=== PATIENT | male | born 1970 | race Caucasian/White ===

== ENCOUNTER 2020-01-09 22:52 | Inpatient (IN) | payer BC ==
[~2020-01-09] VITALS: Ht 177.8 cm; Wt 113.4 kg
[2020-01-09 23:50] LABS: CARBON DIOXIDE 35.7 mmol/L (21-32); CREATININE SERUM 1.4 mg/dL (0.7-1.3); POTASSIUM SERUM 4.5 mmol/L (3.5-5.1)
[2020-01-09 23:52] LABS: BASOPHIL % 0.6 % (0-2); PLATELET COUNT 195 x10^3mcL (130-400); RED CELL DISTRIBUTION WIDTH 12.8 % (11.5-14.5)
[2020-01-09 23:54] LABS: ALBUMIN 3.9 g/dL (3.4-5.0); BILIRUBIN TOTAL 0.4 mg/dL (0.20-1.00); TOTAL PROTEIN, SERUM 7.6 g/dL (6.4-8.2)
[2020-01-10] VITALS (7 sets, daily range): BP systolic 101–133; BP diastolic 58–89; Ht 177.8 cm; Wt 113.4 kg
[2020-01-10] MEDS ORDERED: METFORMIN HCL1000 MG PO (01:00)
[2020-01-10] MEDS ORDERED: AMARYL2 MG PO (01:00)
[2020-01-10 01:04] LABS: CHOLESTEROL/HDL RATIO 5.3; MAGNESIUM 2.1 mg/dL (1.8-2.4); PHOSPHOROUS 3.8 mg/dL (2.5-4.9)
[2020-01-10 01:10] LABS: T3 TOTAL 1.49 ng/mL
[2020-01-10 01:17] LABS: FREE T4 1.07 ng/dL (0.76-1.46); FREE THYROXINE INDEX 2.4 ug/dL (1.4-4.5); T4(THYROXINE) 7.4 ug/dL (4.7-13.3)
[2020-01-10 07:24] LABS: BASOPHIL % 0.6 % (0-2); PLATELET COUNT 163 x10^3mcL (130-400); RED CELL DISTRIBUTION WIDTH 12.8 % (11.5-14.5)
[2020-01-10 07:34] LABS: CALCIUM 8.5 mg/dL (8.5-10.1); CARBON DIOXIDE 32.6 mmol/L (21-32); CHLORIDE SERUM 102 mmol/L (98-107); CREATININE SERUM 1.2 mg/dL (0.7-1.3); GFR1 > 60 mL/min; GLUCOSE SERUM 200 mg/dL (74-106); POTASSIUM SERUM 3.9 mmol/L (3.5-5.1); SODIUM SERUM 138 mmol/L (136-145)
[2020-01-10 10:47] LABS: microscopic required? NO
[2020-01-10 10:51] LABS: UA SPECIFIC GRAVITY >=1.030 (1.005-1.035); urine erythrocyte NEGATIVE (NEGATIVE)
[2020-01-10 11:22] LABS: AMPHETAMINE QUAL UR NONE DETECTED (See below)
[2020-01-10] MEDS ORDERED: PRA40 PO (14:09)
[2020-01-10] MEDS ORDERED: ATORVASTATIN CA20 M1 PO (14:36)
== END 2020-01-10 15:48 | disposition home or self-care (01) | DRG 205 ==
LOC: ED 22:52 → DU 01-10 00:20
PROVIDERS: Emergency Medicine; Internal Medicine; ADMIT Family Medicine; ATTEND Family Medicine
DX: M94.0 Chondrocostal junction syndrome [Tietze] (principal); N17.0 Acute kidney failure with tubular necrosis; E78.00 Pure hypercholesterolemia, unspecified; E11.9 Type 2 diabetes mellitus without complications; M10.9 Gout, unspecified; E78.5 Hyperlipidemia, unspecified; G47.33 Obstructive sleep apnea (adult) (pediatric); E66.9 Obesity, unspecified; Z90.49 Acquired absence of other specified parts of digestive tract; Z79.84 Long term (current) use of oral hypoglycemic drugs; Z79.899 Other long term (current) drug therapy; Z68.39 Body mass index [BMI] 39.0-39.9, adult
CPT/HCPCS: 82962; 83880; 84439; G0378; J1644; J7030; Q0092